=== PATIENT | male | born 1955 | race Caucasian/White ===

== ENCOUNTER → 2017-12-05 11:03 | Outpatient (CLI) | payer BC, SELFPAY ==
--- NOTE | 2017-12-05 11:14 | XR_ITS ---
XR knee LT 3V HISTORY: ITS.REASON: INJURY OF LEFT KNEE, INITIAL ENCOUNTER ORDERING PHYSICIAN: Monika Solomon PATIENT AGE: 62 years COMPARISON: None FINDINGS: There is moderate osteoarthritis of the left knee involving all 3 compartments greater at the medial compartment and patellofemoral joint. There is 4 mm lateral subluxation of the tibia No acute fracture or dislocation. There is an old proximal tibial shaft fracture. IMPRESSION: Osteoarthritis Old proximal tibial fracture
== END ==
PROVIDERS: PCP Nurse Practitioner Family; Visit Provider Nurse Practitioner Family
DX: S89.92XA Unspecified injury of left lower leg, initial encounter (principal)
CPT/HCPCS: 73562